=== PATIENT | female | born 2005 | race Caucasian/White ===

== ENCOUNTER 2024-01-20 21:34 | Emergency (ER) | payer SELFPAY ==
[2024-01-21] MEDS ORDERED: Ketorolac Tromethamine 30 MG (1 mL) VIAL ONE (00:03)
[2024-01-21] MEDS ORDERED: Lidocaine Viscous Sol 2% 15 ml UD Cup ONE (00:03)
== END 2024-01-21 00:17 | disposition home or self-care (01) ==
LOC: CSHERS 21:34
DX: K08.89 Other specified disorders of teeth and supporting structures (principal); Z75.3 Unavailability and inaccessibility of health-care facilities
CPT/HCPCS: 96372; 99282; J1885